=== PATIENT | male | born 1985 | race Hispanic/Latino ===

== ENCOUNTER → 2023-12-07 18:35 | Outpatient (CLI) | payer OTHER, SELFPAY ==
--- NOTE | 2023-12-07 | DI.RAD.S_ITS ---
PROCEDURE: XR SHOULDER RT MIN 2V INDICATIONS: l I AUTO. SHOULDER PAIN TECHNIQUE: 3 views of the shoulder were acquired. COMPARISON: None. FINDINGS: Bones: No fractures or dislocations. No suspicious bony lesions. Visualized ribs appear intact. A probable small bone island is noted at the humeral head. Soft tissues: No suspicious soft tissue calcifications. IMPRESSION: No acute bony abnormality. Dictated by: Kylie Phan M.D. on 12/09/2023 at 11:53 Approved by: Kylie Phan M.D. on 12/09/2023 at 11:53
--- NOTE | 2023-12-07 18:37 | DI.MRI.S_ITS ---
PROCEDURE: MR SHOULDER RT WO CON INDICATIONS: subluxation of unspecified shoulder joint TECHNIQUE: Noncontrast oblique coronal T2 fast spin echo with fat saturation, oblique sagittal T1 spin echo and T2 fast spin echo with fat saturation, axial T1 spin echo and T2 fast spin echo with fat saturation through the shoulder. COMPARISON: [facility], CR, XR SHOULDER RT MIN 2V, 12/07/2023, 19:21. FINDINGS: Image quality: There are motion artifacts. Rotator cuff: There is moderate tendinosis of the supraspinatus, infraspinatus, and subscapularis tendons. No high-grade tendon tear. Sagittal images demonstrate no rotator cuff muscle atrophy. Bones and bursae: Suspect old healed nondisplaced fracture of the glenoid (series 6 image 13). No acute, displaced fractures. There is moderate acromioclavicular and glenohumeral joint degeneration. The acromion demonstrates conventional anatomy, without an os acromiale. No pathologic subacromial-subdeltoid or subcoracoid bursal fluid is present. Capsule and soft tissues: There is degenerative tear of the anterior labrum. Mild tendinosis of the intra-articular segment of the long head of the biceps tendon which demonstrates normal location and morphology. The rotator interval appears normal, without fibrosis. The coracohumeral ligament is normal in thickness. IMPRESSION: 1. Moderate rotator cuff tendinosis. No high-grade tendon tear. No rotator cuff muscle atrophy. 2. Mild tendinosis of the long head of the biceps. 3. Moderate acromioclavicular and glenohumeral arthrosis. 4. Degenerative tear of the anterior labrum. 5. Suspect old healed nondisplaced glenoid fracture. Dictated by: Meet Loza M.D. on 12/10/2023 at 7:59 Approved by: Meet Loza M.D. on 12/11/2023 at 13:55
== END ==
PROVIDERS: PCP Chiropractor; Referring Provider Chiropractor; Visit Provider Chiropractor
DX: S43.491A Other sprain of right shoulder joint, initial encounter (principal); M19.011 Primary osteoarthritis, right shoulder; S43.003A Unspecified subluxation of unspecified shoulder joint, initial encounter; S63.003A Unspecified subluxation of unspecified wrist and hand, initial encounter; X58.XXXA Exposure to other specified factors, initial encounter
CPT/HCPCS: 73030; 73221